=== PATIENT | male | born 1985 | race Caucasian/White ===

== ENCOUNTER 2017-05-31 09:15 | Emergency (ER) | payer BC, OTHER ==
[2017-05-31 09:37] VITALS: BP 134/75
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
== END 2017-05-31 12:18 | disposition home or self-care (01) ==
LOC: MW.ED 09:15
DX: S32.010A Wedge compression fracture of first lumbar vertebra, initial encounter for closed fracture (principal); V47.5XXA Car driver injured in collision with fixed or stationary object in traffic accident, initial encounter
CPT/HCPCS: 72125; 72125-26; 72128; 72128-26; 72131; 72131-26; 72170; 72170-26; 81003; 99284; 99284-25